=== PATIENT | female | born 1950 | race Caucasian/White ===

== ENCOUNTER 2019-01-06 11:23 | Emergency (ER) | payer MEDICARE, OTHER ==
[2019-01-06 12:20] LABS: URINE PH (Dip) POC 5.5 (5.0-8.5)
[2019-01-06 12:20] LABS: URINE BLOOD (Dip) POC Trace-intact (NEGATIVE); URINE GLUCOSE (Dip) POC Negative (NEGATIVE); URINE KETONES (Dip) POC Negative (NEGATIVE); URINE LEUKOCYTE EST (Dip) POC 1+ (NEGATIVE); URINE NITRITE (Dip) POC Negative (NEGATIVE); URINE TOTAL PROTEIN POC 1+ (NEGATIVE)
[2019-01-06 12:29] LABS: ADD MAN DIFF? NO
[2019-01-06 12:41] LABS: WHITE BLOOD COUNT 6.7 10^3/ul (4.8-10.8)
[2019-01-06 12:41] LABS: BASOPHILS % 0.4 % (0.0-2.0); EOSINOPHILS # 0.1 10^3/ul (0.0-0.5); HEMATOCRIT 37.4 % (37.0-47.0); HEMOGLOBIN 12.2 g/dl (12.0-16.0); LYMPHOCYTES # 2.1 10^3/ul (0.8-2.9); LYMPHOCYTES % 30.8 % (15.0-51.0); MEAN CORPUSCULAR HEMOGLOBIN 30.7 pg (29.0-33.0); MEAN CORPUSCULAR HGB CONC 32.6 g/dl (32.0-37.0); MEAN PLATELET VOLUME 10.2 fl (7.4-10.4); MONOCYTE # 0.4 10^3/ul (0.3-0.9); MONOCYTES % 6.6 % (0.0-11.0); NEUTROPHIL # 4.1 10^3/ul (1.6-7.5); NEUTROPHILS % 60.9 % (39.0-77.0); PLATELET COUNT 255 10^3/UL (140-415); RED BLOOD COUNT 3.98 10^6/ul (4.20-5.40); RED CELL DISTRIBUTION WIDTH 14.8 % (11.5-14.5)
[2019-01-06 12:54] LABS: ALANINE AMINOTRANSFERASE 12 IU/L (13-69); ALBUMIN 4.7 g/dl (3.3-4.9); ALBUMIN/GLOBULIN RATIO 1.06; ALKALINE PHOSPHATASE 87 IU/L (42-121); ASPARTATE AMINO TRANSFERASE 35 IU/L (15-46); BILIRUBIN,INDIRECT 0.4 mg/dl (0-1.1); BILIRUBIN,TOTAL 0.4 mg/dl (0.2-1.3); BLOOD UREA NITROGEN 18 mg/dl (7-20); CALCIUM 10.2 mg/dl (8.4-10.2); CARBON DIOXIDE 25 mmol/L (21-31); CHLORIDE 103 mmol/L (97-110); CREATININE 1.31 mg/dl (0.44-1.00); Estimated GFR 40 mL/min (>60); GLUCOSE 104 mg/dl (70-220); LIPASE 74 U/L (23-300); POTASSIUM 4.4 mmol/L (3.5-5.1); TOTAL PROTEIN 9.1 g/dl (6.1-8.1)
[2019-01-06 12:57] LABS: ANION GAP 12 (5-13); SODIUM 140 mmol/L (135-144)
[2019-01-06 13:05] LABS: TROPONIN-I < 0.012 ng/ml (0.000-0.120)
== END 2019-01-06 14:42 | disposition home or self-care (01) ==
LOC: E/R 14:42
DX: N39.0 Urinary tract infection, site not specified (principal); I10 Essential (primary) hypertension; R40.2142 Coma scale, eyes open, spontaneous, at arrival to emergency department; R40.2222 Coma scale, best verbal response, incomprehensible words, at arrival to emergency department; R40.2362 Coma scale, best motor response, obeys commands, at arrival to emergency department; Z79.82 Long term (current) use of aspirin
CPT/HCPCS: 71045; 80053; 81003; 83690; 84484; 85025; 93005; 99285-25